=== PATIENT | male | born 1965 | race Caucasian/White ===

== ENCOUNTER 2023-08-06 15:15 | Emergency (ER) | payer OTHER, SELFPAY ==
[2023-08-06 15:24] VITALS: BP 172/107
[2023-08-06 16:08] VITALS: BP 161/110
--- NOTE | 2023-08-06 16:38 | ED.GENMED ---
History of Present Illness
General
Chief Complaint: Fall
Time Seen by Provider: 08/06/23 16:01
Travel History
Have you had any contact with someone who has COVID-19?: No
Do you have any symptoms of coronavirus? Fever > 100 degrees, chills, cough, shortness of breath, sore throat, loss of taste or smell, muscle aches, or headache?: No
History of Present Illness
History of Present Illness:
58-year-old male presents to the emergency department for evaluation of right-sided rib pain. The initial injury was sustained 2 weeks ago when he fell onto a box, states pain was mild to moderate but improving however yesterday while attempting to
lift at work he felt increased pain. Denies any difficulty breathing. No hemoptysis
Review of Systems
Review of Systems
Allergies reviewed?: Yes
All Other Systems: ROS reviewed and negative except as documented in HPI and ROS
Phy Exam
Physical Exam
Physical Exam:
GEN: Well appearing, NAD, WDWN
HEENT: Oral mucosa moist, no scleral icterus
Cardiac: Regular rate
Lung: No respiratory distress, no tachypnea, lungs clear to auscultation bilaterally
Chest: Focal tenderness to the right anterior chest wall inferior to the nipple in the lateral clavicular line, no gross deformity or crepitus
MSK: No gross deformity or injuries
Skin: Good color, no pallor or jaundice, no rashes
Neuro: AO x3, moves all extremities freely
Psych: Calm, cooperative
Course
Orders/Labs/Results
Orders:
Orders
08/06/23 15:30
CR Ribs-right 3 Vw W/pa Chest* Urgent
Reason For Exam: right rib pain
08/06/23 17:22
Incentive Spirometry [Rx Incentive Spirometry] [RESP] Urgent
Frequency: q1h while awake
Vital Signs
Initial and Last Documented VS:
Initial Vital Signs
Temp Pulse Resp BP Pulse Ox
98.3 F 86 18 172/107 96
08/06/23 15:24 08/06/23 15:24 08/06/23 15:24 08/06/23 15:24 08/06/23 15:24
Last Documented Vital Signs
Temp Pulse Resp BP Pulse Ox
98.3 F 84 18 160/102 98
08/06/23 15:24 08/06/23 17:20 08/06/23 17:20 08/06/23 17:20 08/06/23 17:20
MDM/Problems Addressed
MDM/Problems Addressed:
Imaging shows no evidence for hemopneumothorax. Isolated rib fracture identified. Discussed supportive care, patient provided with an incentive spirometer
*Critical Care Note
Total Time (30-74mins, 75-104mins- exclusive of procedures): Not Applicable
ED Attending Note
-
Portions of this chart may have been created with voice recognition software.� Occasional wrong word or��sound alike� substitutions may have occurred due to the inherent limitations of voice recognition software.
Discharge Plan
Departure
Patient Disposition: Home (Routine Discharge)
Date of Disposition: 08/06/23
Time of Disposition: 16:38
Patient with high blood pressure during this ER visit?: Yes
Discharge Problem:
Closed rib fracture
Instructions: How to Use an Incentive Spirometer, Rib Fracture (DC)
Prescriptions:
New
methocarbamol 750 mg tablet
750 - 1,500 mg PO HS PRN (Reason: muscle pain) Qty: 20 0RF
Referrals:
Murray Monroy, DO [Family Provider] -
Interventions
Interventions:
*Risk Screen - Suicide Last Done: 08/06/23 16:05
*General Assessment Last Done: 08/06/23 16:05
*Neglect/Abuse Screening Last Done: 08/06/23 16:05
ED- Fall Risk Assessment Last Done: 08/06/23 16:08
*ED COVID-19 Vaccine History Last Done: 08/06/23 16:05
*Nursing Disposition Last Done: 08/06/23 17:20
ED-Musculoskeletal Assessment Last Done: 08/06/23 16:05
ED- Neurological Assessment Last Done: 08/06/23 16:05
ED-Skin Assessment Last Done: 08/06/23 16:05
Discharge Date and Time
Discharge Date/Time: 08/06/23 17:00
Print Language: KOSOVAN
--- NOTE | 2023-08-06 17:19 | EDRN ---
Discharge instructions reviewed with patient. Verbalized understanding. Ambulated with steady gait to the lobby.
[2023-08-06 17:20] VITALS: BP 160/102
== END 2023-08-06 17:00 | disposition home or self-care (01) ==
LOC: EMR 15:15
PROVIDERS: EMERGENCY PHYSICIAN Emergency Medicine; FAMILY PHYSICIAN Family Medicine
DX: S22.31XA Fracture of one rib, right side, initial encounter for closed fracture (principal); W19.XXXA Unspecified fall, initial encounter
CPT/HCPCS: 99283; 71101